=== PATIENT | male | born 1985 | race Two or more races ===

== ENCOUNTER 2020-06-10 02:54 | Emergency (ER) | payer OTHER ==
[~2020-06-10] VITALS: Ht 172.7 cm; Wt 72.6 kg
[2020-06-10] MEDS ORDERED: AMOX-CLAV 875-1 EACH PO (04:18)
[2020-06-10] MEDS ORDERED: NAPROXEN375 MG PO (04:18)
[2020-06-10] MEDS ORDERED: INTESTINEX680 M2 PO (04:18)
== END 2020-06-10 05:12 | disposition home or self-care (01) ==
LOC: ER 02:54
DX: S01.422A Laceration with foreign body of left cheek and temporomandibular area, initial encounter (principal); W54.0XXA Bitten by dog, initial encounter; Y93.89 Activity, other specified; Y92.89 Other specified places as the place of occurrence of the external cause; Y99.8 Other external cause status

== ENCOUNTER 2020-10-22 01:58 | Emergency (ER) | payer OTHER ==
[~2020-10-22] VITALS: Ht 172.7 cm; Wt 72.6 kg
[~2020-10-22 01:58] MED LIST: AMOX-CLAV 875-1 EACH PO; INTESTINEX680 M2 PO; NAPROXEN375 MG PO
[2020-10-22] MEDS ORDERED: PERCOCET 5-3251 EACH PO (04:06)
== END 2020-10-22 04:14 | disposition home or self-care (01) ==
LOC: ER 01:58
DX: S62.344A Nondisplaced fracture of base of fourth metacarpal bone, right hand, initial encounter for closed fracture (principal); S62.346A Nondisplaced fracture of base of fifth metacarpal bone, right hand, initial encounter for closed fracture; W18.39XA Other fall on same level, initial encounter; Y93.89 Activity, other specified; Y92.89 Other specified places as the place of occurrence of the external cause; Y99.8 Other external cause status